=== PATIENT | female | born 1955 | race Caucasian/White ===

== ENCOUNTER → 2021-04-03 | Outpatient (CLI) | payer MEDICARE, OTHER ==
[~2021-04-03] MED LIST: AMLODIPINE BESYL5 MG PO; ASPIRIN EC81 MG PO; CETIRIZINE HCL10 MG PO; COLACE100 MG PO; DOXYCYCLINE HY100 M2 PO; ENDOCET 5-3251 EACH PO; FAMOTIDINE20 MG PO; FLOMAX 0.4 MG0.4 MG PO; FLOVENT DISKUS50 MCG INH; FOSAMAX70 MG PO; GLUCOPHAGE 500500 MG PO; LASIX TAB 20 MG20 MG PO; LEVOTHYROXINE75 MCG PO; LORTAB 7.5-3251 EACH PO; LOSARTAN-HCTZ1 EACH PO; MACRODANTIN100 MG PO; MUCINEX FAST-M1 EAC2 PO; NORCO 10-325 T1 EACH PO; OMEPRAZOLE40 MG PO; ONDANSETRON ODT4 MG SL; PHENERGAN 12.12.5 M1 PO; POTASSIUM CHLO10 ME1 PO; TENORMIN100 MG PO; TYLENOL 500 MG500 MG PO; VALSARTAN80 MG PO; VENTOLIN/PROVE0.5 ML INH; VITAMIN D 40400 UNIT PO
[2021-04-03 12:36] LABS: BUN/CREATININE RATIO 20 (0-10)
== END ==
LOC: OPSV2 10:30
PROVIDERS: Anesthesiology
DX: Z01.818 Encounter for other preprocedural examination (principal); N20.1 Calculus of ureter; N13.30 Unspecified hydronephrosis; R94.31 Abnormal electrocardiogram [ECG] [EKG]; Z20.822 Contact with and (suspected) exposure to COVID-19
CPT/HCPCS: 36415; 80048; 93005; U0003

== ENCOUNTER → 2021-04-06 | Day surgery (SDC) | payer MEDICARE, OTHER ==
[2021-04-13 14:14] LABS: CA OXALATE DIHYDRATE 20 % (.); CALCIUM OXALATE MONOHYDRATE 80 % (.); COLOR Brown (.); SOURCE Ureter (.); WEIGHT 219 mg (.)
== END | disposition home or self-care (01) ==
LOC: OR 07:59
PROVIDERS: Urology
DX: N13.2 Hydronephrosis with renal and ureteral calculous obstruction (principal); I12.9 Hypertensive chronic kidney disease with stage 1 through stage 4 chronic kidney disease, or unspecified chronic kidney disease; E11.22 Type 2 diabetes mellitus with diabetic chronic kidney disease; N18.30 Chronic kidney disease, stage 3 unspecified; J44.9 Chronic obstructive pulmonary disease, unspecified; K21.9 Gastro-esophageal reflux disease without esophagitis; F41.9 Anxiety disorder, unspecified; F32.9 Major depressive disorder, single episode, unspecified; Z87.891 Personal history of nicotine dependence; Z88.5 Allergy status to narcotic agent; Z88.0 Allergy status to penicillin; Z79.899 Other long term (current) drug therapy
CPT/HCPCS: 76000; C1769; C1894; C2617; J1100; J1956; J2001; J2405; J2704; J3010; J7030; J7120

== ENCOUNTER → 2022-01-24 | Outpatient (CLI) | payer MEDICARE, OTHER | LOC: HEART 5 10:10 | DX: R00.2 Palpitations (principal) ==